=== PATIENT | female | born 1985 | race Two or more races ===

== ENCOUNTER 2020-03-07 13:55 | Outpatient (REF) | payer MEDICAID, SELFPAY | END 2020-03-07 13:56 | disposition home or self-care (01) | LOC: HO.LAB 13:55 | PROVIDERS: PCP Nurse Practitioner Family; Referring Provider Nurse Practitioner Family; Visit Provider Advanced Practice Midwife | DX: Z01.419 Encounter for gynecological examination (general) (routine) without abnormal findings (principal); N63.0 Unspecified lump in unspecified breast; N92.6 Irregular menstruation, unspecified | CPT/HCPCS: 87624; 87625; 88142 ==

== ENCOUNTER 2020-03-15 13:13 | Outpatient (REF) | payer MEDICAID, SELFPAY ==
--- NOTE | 2020-03-15 13:19 | MM_ITS ---
EXAMINATION: MM DIAGNOSTIC DIGITAL BREAST TOMOSYNTHESIS, BILATERAL US DIAGNOSTIC ULTRASOUND BREAST, LEFT CLINICAL INFORMATION: 34-year-old with 3 cm palpable mass 7:30 o'clock position left breast 8 cm from nipple noted at routine clinical exam. No prior breast imaging. No family history breast cancer. Prior history bilateral reduction mammoplasty 2008. COMPARISON: None (current study represents initial baseline exam). TECHNIQUE: Digital breast tomosynthesis is performed in both the craniocaudal and mediolateral oblique views along with computer-aided detection (CAD). Synthesized 2D images are generated from the tomosynthesis. Ultrasound left breast is targeted to the area of clinical concern lower quadrant. Grayscale imaging and color Doppler are performed without and with harmonics. FINDINGS: The breasts are almost entirely fatty (ACR BI-RADS breast composition Category a). Background stromal markings are unremarkable. There is no mass or architectural abnormality. No abnormal calcifications. There are some punctate fine benign round calcifications in the anterior breasts consistent with the history of prior reduction mammoplasty. The axilla and skin contours are unremarkable. Ultrasound demonstrates no cystic or solid mass, architectural abnormality, or focal duct ectasia. There is no skin thickening or edema tracking in the soft tissue planes. Results are discussed with the patient at time of visit.Patient should be managed based on the clinical impression. If clinically indicated, further evaluation may be considered with surgical consult. Decision to proceed with biopsy should be based on clinical grounds and degree of clinical concern. MM/MM diagnostic mammo BI IMPRESSION: No mammographic evidence of malignancy. Unremarkable targeted left breast ultrasound. ASSESSMENT: BI-RADS 2: Benign RECOMMENDATION: 1. Patient should be managed based on the clinical impression. If clinically indicated, further evaluation may be considered with surgical consult. Decision to proceed with biopsy should be based on clinical grounds and degree of clinical concern. 2. Otherwise, routine annual screening mammography, beginning age 40, or earlier as clinical risk factors warrant. This patient's information was entered into a reminder system with a target due date for their next mammogram.
== END 2020-03-15 13:14 | disposition home or self-care (01) ==
LOC: HO.MAMMO 13:13
PROVIDERS: Visit Provider Advanced Practice Midwife
DX: N63.24 Unspecified lump in the left breast, lower inner quadrant (principal)
CPT/HCPCS: 76642; 77066

== ENCOUNTER → 2020-03-28 11:47 | Outpatient (BNVA) | payer MEDICAID, SELFPAY | PROVIDERS: Visit Provider Advanced Practice Midwife | DX: Z76.89 Persons encountering health services in other specified circumstances (principal) ==

== ENCOUNTER 2020-10-05 14:54 | Emergency (ER) | payer MEDICAID, SELFPAY ==
[2020-10-05 16:45] VITALS: BP 115/79; PULSE 101; RESP 18; TEMP 37.8; O2SAT 99; BMI 42.5
--- NOTE | 2020-10-05 17:10 | ED_ITS ---
HPI - General Adult General Chief complaint: General Medical Stated complaint: COUGH CHEST DISCOMPFORT Time Seen by Provider: 10/05/20 16:43 Source: patient and family Limitations: language barrier History of Present Illness HPI narrative: Patient complaining of sore throat congestion over the past 24-36 hours. Positive sick contacts the family. No known COVID-19 exposure or past history of COVID-19 and patient has not been vaccinated patient denies smoking history. Patient denies taking medications at this time no trauma history. Patient denies nausea vomiting or diarrhea at this time. Patient has had a slight fever at home. No other complaints at this time Related Data Home Medications Medication Instructions Recorded Confirmed No Known Home Meds 03/07/20 03/07/20 Allergies Allergy/AdvReac Type Severity Reaction Status Date / Time No Known Allergies Allergy Unknown Verified 10/05/20 16:45 Review of Systems Constitutional: Constitutional: Denies chills, Reports fever(s) and Denies headache(s) ENT: Denies headache(s), Reports nasal congestion, Denies sinus pain and Reports sore throat Cardiovascular: Cardiovascular: Denies chest pain and Denies dyspnea Respiratory: Respiratory: Reports cough and Denies dyspnea Gastrointestinal: Gastrointestinal: Denies diarrhea, Denies nausea and Denies vomiting Genitourinary: Genitourinary: Reports no additional female genitourinary complaints Musculoskeletal: Musculoskeletal: Reports no additional musculoskeletal complaints Neurologic: Denies headache(s) Endocrine: Endocrine: Reports no additional endocrine complaints Allergic/Immunologic: Allergic/Immunologic: Denies urticaria PMFSH Past Medical History Attestation statement: The following information was validated with the patient. Medical History Unsatisfactory cervical Papanicolaou smear Surgical History Hx of bilateral breast reduction surgery Family History Family History Father Stroke Diabetes mellitus Prostate cancer Paternal Grandfather Diabetes mellitus Maternal Grandfather Prostate cancer Mother HTN (hypertension) Social History Social History Alcohol intake: never Advance Directives: No Advance Directives Information Provided: No Patient : No Gender identity: female Physical Exam Vital Signs: Vital Signs: Last Vital Signs Temp 100.0 F 10/05/20 16:45 Pulse 101 H 10/05/20 16:45 Resp 18 10/05/20 16:45 BP 115/79 10/05/20 16:45 Pulse Ox 99 10/05/20 16:45 Body Mass Index 42.5 vital signs have been reviewed as normal and appeared to be correct. Blood pressure normal. Heart rate normal. Respiration rate normal. Temperature normal. Oxygen saturation normal. Appearance: Alert. Oriented X3. No acute distress. Head: Normal external exam. Normocephalic. Atraumatic. Eyes: PERRLA. EOMI. Conjunctiva and sclera normal. Eyelids normal. ENT: Pharynx normal. Uvula midline. Moist mucous membranes. No evidence of peritonsillar abscess Neck: Soft full range of motion, no JVD CVS: Heart regular rate and rhythm no murmurs and rubs Respiratory: Breath sounds are clear to auscultation bilaterally. No accessory muscle use noted. Abdomen: Soft nontender no rebound or guarding positive bowel sounds Skin: Skin warm and dry. Normal skin color. Normal skin turgor. No rashes/lesions/lacerations noted. Extremities: No lower extremity edema. Patient ambulatory without ataxia Neuro: Oriented X 3. No motor deficit. No sensory deficit. Reflexes normal. Course Course Course Narrative: Differential diagnosis: COVID-19 COVID-19 screening Fever Acute pharyngitis Peritonsillar abscess Patient is febrile at a temp a 101? given 975 mg Tylenol p.o. at this time CO VID-19 swab sent patient has no obvious source of infection the oropharynx. O2 sat is 99% on room air 5:48 p.m. patient signed out to Corina Ventura PA-C
[2020-10-05] MEDS: Acetaminophen 325 MG TABLET 975 MG PO (17:31)
--- NOTE | 2020-10-05 18:04 | PC.NURSE ---
PT ALERT, RESP UNLABORED. MED WITH TYLENOL OREDERD FOR FEVER. WAITING RESULTS.
[2020-10-05 18:20] LABS: IDNOW Serial# 9DD0AD1C
[2020-10-05 18:42] VITALS: BP 128/79; PULSE 101; RESP 17; TEMP 37.7; O2SAT 99
[2020-10-05] MEDS: Ibuprofen 400 MG TABLET PO (19:18)
[2020-10-05 20:03] VITALS: TEMP 37.7
[2020-10-05 20:40] LABS: COVID-19 Test Positive (Negative)
== END 2020-10-05 21:53 | disposition home or self-care (01) ==
PROVIDERS: Physician Assistant; Emergency Provider Internal Medicine
DX: U07.1 COVID-19 (principal); J02.9 Acute pharyngitis, unspecified; R50.9 Fever, unspecified
CPT/HCPCS: 36415; 87635; 99284

== ENCOUNTER 2021-10-08 18:15 | Emergency (ER) | payer MEDICAID, SELFPAY ==
--- NOTE | ~2021-10-08 | XR_ITS ---
EXAMINATION: XR KNEE, LEFT CLINICAL INFORMATION: Injury COMPARISON: None TECHNIQUE: Two views of the left knee. FINDINGS: Small joint effusion. Bones are normal anatomic alignment with no acute fracture or dislocation seen. Mild degenerative changes are noted with small osteophyte formation along the superior aspect of the patella. No bony destructive lesions or periosteal reaction. Surrounding soft tissues unremarkable. XR/XR knee LT 2V IMPRESSION: Small joint effusion. No acute bony abnormality.
[2021-10-08 18:26] VITALS: BP 133/79; PULSE 75; RESP 18; TEMP 36.2; O2SAT 100; BMI 38.9
[2021-10-08 19:52] VITALS: BP 131/70; PULSE 75; TEMP 36.9; O2SAT 100
--- NOTE | 2021-10-08 20:34 | ED.LOWEXIN ---
HPI - Extremity Injury (Lower) General Chief Complaint: Extremity Injury, Lower Stated Complaint: L Knee Pain S/P Injury 10/07/21 Time Seen by Provider: 10/08/21 20:01 Source: patient Mode of arrival: ambulatory Limitations: no limitations History of Present Illness HPI Narrative: Patient presents emergency department for evaluation of left knee pain. She reports yesterday while stepping down from a step stool she missed the last step, and landed poorly on the left leg. She felt sudden onset of left knee pain. Pain has been worse as of today. Pain is worse with weight-bearing. Denies any prior injury to the knee. Denies any fevers, chills, redness, swelling, numbness or tingling of the extremity. Denies any hip or ankle pain. MD complaint: knee injury Onset (ago): day(s) Place: home Severity: moderate Severity scale (1-10): 6 Relieving factors: nothing Exacerbating factors: weight bearing Associated symptoms: ambulatory Other symptoms: none Treatments prior to arrival: cold therapy Related Data Previous Rx's Medication Instructions Recorded naproxen 500 mg tablet 500 mg PO BID PRN #14 tab 10/08/21 Allergies Allergy/AdvReac Type Severity Reaction Status Date / Time No Known Allergies Allergy Unknown Verified 10/05/20 16:45 Review of Systems Review of Systems: Musculoskeletal: Positive knee pain Yes all other systems are reviewed and are negative PMFSH Past Medical History Attestation statement: The following information was validated with the patient. Source: old records reviewed Medical History Unsatisfactory cervical Papanicolaou smear Surgical History Hx of bilateral breast reduction surgery Family History Family History Father Stroke Diabetes mellitus Prostate cancer Paternal Grandfather Diabetes mellitus Maternal Grandfather Prostate cancer Mother HTN (hypertension) Social History Social History Alcohol intake: never Advance Directives: No Advance Directives Information Provided: No Gender identity: Female Physical Exam Vital Signs: Vital Signs: Last Vital Signs Temp 98.4 F 06/06/22 19:52 Pulse 75 10/08/21 19:52 Resp 18 10/08/21 18:26 BP 131/70 10/08/21 19:52 Pulse Ox 100 10/08/21 19:52 BMI result Body Mass Index 38.9 Vital signs have been reviewed as normal and appeared to be correct. Blood pressure normal.? Heart rate normal.? Respiration rate normal. Temperature normal.? Oxygen saturation normal. Appearance: Alert.?Oriented to person, place and time. No acute distress.?Normal affect. Eyes: Pupils equal, round and reactive to light.? ENT: Pharynx normal.?? Neck: Normal inspection.? Neck supple.?? CVS: Heart sounds normal. Normal heart rate and rhythm.? Pulses normal.?? Respiratory: No respiratory distress.? Lung sounds clear to auscultation bilaterally?? Abdomen: Soft and non-tender. Skin: Skin warm and dry.? Normal skin color.? Normal skin turgor.?? Extremities: No lower extremity edema.? No calf ttp. Left knee anterior drawer test negative, posterior drawer test negative, valgus and varus stress tests are negative. No obvious effusion on exam, no deformity, no erythema, no rash. Palpable DP/PT pulse 2+ Neuro: Moves all extremities spontaneously. Sensation intact bilaterally. No motor deficits Ambulates with antalgic gait. Course Course Course Narrative: Patient is a 36-year-old female with no significant past medical history presenting to emergency department for traumatic left knee pain. Patient is hemodynamically stable, well appearing. No erythema or obvious swelling/deformity. Not consistent with fracture, dislocation, or septic arthritis. XR reveals no acute fracture dislocation, presence of small joint effusion. Neurovascularly intact distally. Advised patient cannot completely exclude ligamentous injury, advised the x-ray is not the preferred imaging modality for this, should her symptoms persist or worsen she would need to follow-up with her primary care provider for further evaluation. Discussed plan of care for treatment with rest, ice, compression with use of Sumit bandage, elevation, use of NSAIDs, given a prescription for naproxen. Discussed reasons that she should return back to the emergency department. Advised outpatient follow-up with her primary care provider as needed for pain. All questions were answered, she was discharged home in stable condition. Discharge Plan Discharge Clinical Impression: Effusion of knee Patient Disposition: Home, Self-Care Instructions: Knee Sprain (ED), FazalI.C.E. Treatment (ED) Additional Instructions: Be sure to rest, apply ice, compression with Sumit bandage, elevation when possible. Naproxen twice daily as needed for pain, do not take additional [id number] NSAID such as ibuprofen/Motrin, Aleve, aspirin. Please follow-up with your primary care provider as needed. Return to the emergency department any new or worsening symptoms or concerns. Prescriptions: New naproxen 500 mg tablet 500 mg PO BID PRN (Reason: pain) Qty: 14 0RF
== END 2021-10-08 21:00 | disposition home or self-care (01) ==
LOC: HO.ED 20:37
PROVIDERS: Emergency Provider Emergency Medicine
DX: M25.462 Effusion, left knee (principal); M25.562 Pain in left knee
CPT/HCPCS: 73560; 99283

== ENCOUNTER 2022-10-16 10:32 | Outpatient (REF) | payer MEDICAID, SELFPAY ==
--- NOTE | 2022-10-16 | EMG_ITS ---
Please see scanned EMG / Nerve Conduction Report. MTDD
== END 2022-10-16 10:33 | disposition home or self-care (01) ==
LOC: HO.NEURO 10:32
PROVIDERS: PCP Registered Nurse; Visit Provider Registered Nurse
DX: R20.0 Anesthesia of skin (principal); R20.2 Paresthesia of skin
CPT/HCPCS: 95885; 95913

== ENCOUNTER 2022-11-21 17:40 | Outpatient (REF) | payer MEDICAID, SELFPAY ==
[2022-11-22 13:27] LABS: BV Int Neg Control Negative (Negative); BV Int Pos Control Positive (Positive)
== END 2022-11-21 17:41 | disposition home or self-care (01) ==
LOC: HO.HHCLNP 17:40
PROVIDERS: Visit Provider Internal Medicine
DX: N89.8 Other specified noninflammatory disorders of vagina (principal)
CPT/HCPCS: 87086; 87147; 87480; 87510; 87660

== ENCOUNTER 2023-06-11 12:22 | Emergency (ER) | payer MEDICAID, SELFPAY ==
[2023-06-11 12:57] VITALS: BP 134/89; PULSE 83; RESP 18; TEMP 36.2; O2SAT 99; BMI 42.9
--- NOTE | 2023-06-11 12:58 | ED_ITS ---
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 Mode of arrival: ambulatory Limitations: no limitations History of Present Illness HPI narrative: 38 yo female with mild cold symptoms no chest pain, trouble breathing exposed to COVID on friday wants covid test complaint: cold symptoms Onset (ago): day(s) (Friday) Radiation: non-radiation Severity: mild Relieving factors: none Exacerbating factors: none Associated symptoms: other (runny nose) Treatments prior to arrival: none Related Data Previous Rx's Medication Instructions Recorded naproxen 500 mg tablet 500 mg PO BID PRN pain #14 tabs 10/08/21 Allergies Allergy/AdvReac Type Severity Reaction Status Date / Time No Known Allergies Allergy Unknown Verified 06/11/23 12:56 Review of Systems Review of Systems: Constitutional : No Fever, No Chills, No Fatigue ENT/Mouth : No sore throat, pos Rhinorrhea Eyes: No Eye Pain, No Swelling, No Redness Cardiovascular : No Chest Pain, No SOB, No Dyspnea on Exertion Respiratory : No Cough, No Sputum Gastrointestinal : No Nausea, No Vomiting, No Diarrhea, No abdominal Pain Genitourinary : No Dysuria, No Urinary Frequency, No Hematuria, Musculoskeletal : No joint pain, No Myalgias, No Joint Swelling Skin : No Skin Lesions, No rash Neuro : No Weakness, No Numbness, No Dizziness, positive Headache Psych : No Anxiety/Panic, No Depression All other systems reviewed and are negative PMFSH Past Medical History Attestation statement: The following information was validated with the patient. Source: old records reviewed Medical History Unsatisfactory cervical Papanicolaou smear Surgical History Hx of bilateral breast reduction surgery Family History Family History Father Stroke Diabetes mellitus Prostate cancer Paternal Grandfather Diabetes mellitus Maternal Grandfather Prostate cancer Mother HTN (hypertension) Social History Social History Alcohol intake: never Gender identity: Female Physical Exam ED Vital Signs: Vital Signs - 24 hr 06/11/23 12:57 Temperature 97.1 F Pulse Rate 83 Respiratory Rate 18 Blood Pressure 134/89 Pulse Oximetry 99 Oxygen Delivery Method Room Air BMI result Body Mass Index 42.9 Appearance: Alert. Oriented X3. No acute distress. Eyes: Pupils equal, round and reactive to light. ENT: Pharynx normal. Neck: Normal inspection. Neck supple. CVS: Normal heart rate and rhythm. Pulses normal. Respiratory: No respiratory distress. Breath sounds normal. Abdomen: Soft and nontender. Skin: Skin warm and dry. Normal skin color. Normal skin turgor. Extremities: No lower extremity edema. No calf ttp Neuro: Oriented X 3. No motor deficit. No sensory deficit. Course Course Course Narrative: RME:? 38 year old turkish speaking female with no significant pmhx presenting to ED with daughter and requesting COVID test after being exposed to her COVID positive son at home. Her son tested positive yesterday. She denies any symptoms. No concerns at this time. Denies fevers, chills, sore throat, cough, chest pain, sob or dyspnea, N/V/D. Full HPI, ROS and PE to be performed by the primary ED provider. Medical Decision Making Medical Decision Making MDM Narrative: healthy 38 yo female with no sig PMH here with c/o covid exposure on Friday mild cold sypmtoms no CP/SOB no hypoxia wants covid test, declines paxlovid Differential Diagnosis Differential Diagnoses: The differential diagnosis associated with the presentation includes viral syndrome Lab Data [facility] Lab Attestation statement: I reviewed the patient's lab results. Labs: Lab Results 06/11/23 Range/Units 14:34 COVID-19 (TREV) Positive A (Negative) COVID-19 Clin Com See Note Prescription Management I considered prescription management with: Antiviral Discharge Plan Discharge Clinical Impression: COVID-19 Patient Disposition: Home, Self-Care Instructions: COVID-19 (Coronavirus Disease 2019) (ED) Additional Instructions: return for shortness of breath, chest pain, inability to eat or drink. wear a mask and protect others. Regrese por dificultad para respirar, dolor en el pecho, incapacidad para comer o beber. use cindi m?scara y proteja a los dem?s. Prescriptions: No Action naproxen 500 mg tablet 500 mg PO BID PRN (Reason: pain) Qty: 14 0RF Stand Alone Forms: Work/School Release Print Language: English
[2023-06-11 15:00] LABS: COVID-19 Test Positive (Negative); IDNOW Serial# 08D9AD1C
== END 2023-06-11 15:20 | disposition home or self-care (01) ==
PROVIDERS: Physician Assistant Medical; Emergency Provider Emergency Medicine
DX: U07.1 COVID-19 (principal)
CPT/HCPCS: 87635; 99282; 99283

== ENCOUNTER 2023-07-08 14:18 | Outpatient (AMB) | payer MEDICAID, SELFPAY ==
--- NOTE | 2023-07-08 15:02 | MHC.OFFVIS ---
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 States her right is worse and has had symptoms for the last 10 years. States as of a few months ago her CTS has worsen. Reports this wakes her up at night. She uses a brace to sleep with little help. EMG done. States she is not interested in surgery at the moment. 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 She complains of numbness in the thumb, index, and middle fingers bilaterally, R>L. She says this has been present for a long time. She feels numbness in her wrist and like her fingers are swollen . She says her symptoms wake her up at night and she finds little relief from wearing a brace at night. She is unsure if she wants to have surgery vs an injection as she has heard bad things from people who have not done well following surgery. 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 Gender identity: Female Review of Systems Const All systems reviewed & are unremarkable except as noted in HPI and below Physical Exam Vital Signs: BMI result Body Mass Index 44.8 Const General: cooperative, healthy appearing and no acute distress Orientation/consciousness: patient oriented x3 HEENT Head: Yes normocephalic and Yes atraumatic Eyes EOM: EOMs intact bilaterally Resp Effort & Inspection: normal respiratory effort and able to speak in complete sentences Cardio Jugular venous distension: no JVD Skin General skin exam: turgor normal Rashes: no rashes Neuro General: patient oriented x3 Extrem Other: Evaluation of Bilateral Upper Extremity: The patient is alert, oriented, and in no acute distress Neuro: Median, Ulnar, Radial nerves motor and sensory intact and sensation is normal to the tips of all digits No thenar or intrinsic wasting Good APB muscle belly firing and good finger cross Vascular: Cap refill brisk ROM: She can make a fist and extend all her digits No locking or catching Skin: No lacerations or abrasions. General: No Ecchymosis. No Erythema or evidence of infection. Nerve Conduction Study: Moderate right carpal tunnel syndrome. Early left carpal tunnel syndrome. Dr. Triplett 10/16/22 Psych Appearance: grossly normal Affect: normal affect Attitude: cooperative Assessment & Plan Assessment & Plan (1) Carpal tunnel syndrome of right wrist: Code(s): G56.01 - Carpal tunnel syndrome, right upper limb (2) Carpal tunnel syndrome of left wrist: Code(s): G56.02 - Carpal tunnel syndrome, left upper limb Plan Assessment & Plan: 1. Right carpal tunnel syndrome, moderate Symptoms intermittent, but daily, worse at night This is her primary complaint today I educated her about this condition I discussed operative and non-operative treatment options The patient would like to proceed with surgery, beginning with the right hand The risks and benefits of operative treatment were discussed with the patient and the patient wishes to proceed with surgery. These risks include, but are not limited to risk of damage to blood vessels, nerves, tendons, infection, recurrence, incomplete relief of preoperative symptoms, persistent pain, possible need for further surgery and the risks associated with regional blocks and anesthesia. The plan is to take the patient to the operating room sometime in the next few weeks for the following procedures: 1. Right carpal tunnel release, under local All of the preoperative paperwork including the consent was reviewed today. All the patient's questions were answered. The patient understands that they will be contacted by our cement sprayer helper soon to schedule this procedure She denies Diabetes, blood thinners, asthma, heart, lung, kidney issues 2. Left carpal tunnel syndrome, early Symptoms intermittent, but daily, worse at night Scribed for Annie Yanez MD by Cheng Gay, center medical specialist, on 07/08/23 at 3:20 PM, EST. Coding Level of Care Code New Pt Level 4 (58412) Diagnoses Carpal tunnel syndrome of right wrist G56.01 Carpal tunnel syndrome of left wrist G56.02
[2023-07-08 15:03] VITALS: BMI 44.8
== END 2023-07-08 15:31 | disposition home or self-care (01) ==
PROVIDERS: PCP Registered Nurse; Visit Provider Orthopaedic Surgery
DX: G56.03 Carpal tunnel syndrome, bilateral upper limbs (principal)
CPT/HCPCS: 99204

== ENCOUNTER → 2023-07-08 14:18 | Outpatient (BNVA) | payer MEDICAID, SELFPAY | PROVIDERS: PCP Registered Nurse; Visit Provider Orthopaedic Surgery | DX: G56.03 Carpal tunnel syndrome, bilateral upper limbs (principal) | CPT/HCPCS: 99202 ==

== ENCOUNTER 2023-09-30 09:40 | Outpatient (REF) | payer MEDICAID, SELFPAY ==
[2023-09-30 11:39] LABS: MANUAL DIFF FLAG NO
[2023-09-30 11:54] LABS: Basophils Percent Auto 0.3 % (0-2); Eosinophils Absolute Auto 0.1 X10*3/uL (0.0-0.4); Eosinophils Percent Auto 1.3 % (0-4); Hematocrit 38.6 % (37.0-47.0); Hemoglobin 12.6 g/dl (12.0-16.0); Imm Gran Abs Auto 0.01 X10*3/uL (0.00-0.03); Imm Gran Pct Auto 0.2 % (0.0-0.4); Lymphocytes Percent Auto 33.6 % (20-40); Mean Corpuscular HGB Conc 32.6 g/dl (31.0-35.0); Mean Corpuscular Hemoglobin 27.7 pg (27.0-33.0); Mean Corpuscular Volume 84.8 fL (80.0-98.0); Mean Platelet Volume 10.9 fL (9.4-12.3); Monocytes Absolute Auto 0.5 X10*3/uL (0.1-1.2); Monocytes Percent Auto 8.6 % (2-11); Neutrophils Absolute Auto 3.4 x10*3/uL (2.0-8.3); Platelet Count 341 X10*3/uL (160-400); Red Blood Count 4.55 X10*6/uL (4.20-5.50); Red Cell Distribution Width 13.1 % (11.0-16.0)
[2023-09-30 12:05] LABS: Estimated Average Glucose 111 mg/dL; Hemoglobin A1c % 5.5 % (<6.0)
[2023-09-30 12:24] LABS: Alanine Aminotransferase 11 U/L (0-31); Albumin Level 3.8 g/dL (3.5-5.0); Alkaline Phosphatase 59 U/L (39-117); Anion Gap 10 (12-20); Aspartate Amino Transferase 12 U/L (5-31); Bilirubin Total 0.4 mg/dL (0.0-1.0); Blood Urea Nitrogen 10 mg/dL (9-16); Calcium 9.1 mg/dL (8.4-10.2); Carbon Dioxide 28 mmol/L (22-29); Chloride 106 mmol/L (96-108); Cholesterol 179 mg/dL (<200); Estimated Glomerular Filt Rate > 60; Glucose Random 108 mg/dL (60-115); HDL Cholesterol 57 mg/dL (>40); LDL Cholesterol Calculated 113 mg/dL (<100); Potassium 3.9 mmol/L (3.3-5.1); Sodium 140 mmol/L (135-145); TSH reflex Free T4 1.49 uIU/mL (0.32-4.0); Total Protein 6.7 g/dL (6.5-8.0); Triglycerides 49 mg/dL (<150); Vitamin D 25-OH Total 31.7 ng/mL (>30)
[2023-10-03 08:58] LABS: TS Negative Control Passed; TS Panel A 1; TS Panel B 0; TS Positive Control Passed; TSpotTB Negative (Negative)
== END 2023-09-30 09:41 | disposition home or self-care (01) ==
LOC: HO.HHCL 09:40
PROVIDERS: Visit Provider Registered Nurse
DX: Z00.00 Encounter for general adult medical examination without abnormal findings (principal); Z11.1 Encounter for screening for respiratory tuberculosis
CPT/HCPCS: 36415; 80053; 80061; 82306; 83036; 84443; 85025; 86481

== ENCOUNTER 2023-11-13 12:23 | Day surgery (SDC) | payer MEDICAID, SELFPAY ==
[2023-11-13 12:59] VITALS: BMI 42.4
--- NOTE | 2023-11-13 16:32 | P.OP_ITS ---
Operative Note Operative Note Date of Service: 11/13/23 Narrative: Preop diagnosis: 1. Right Carpal tunnel syndrome Postop diagnosis: same Procedure: 1. Right Carpal tunnel release Surgeon: Annie Yanez MD Senior Net C Developer: VARGAS Gomes Anesthesia: local block using 1% lidocaine with epinephrine Findings: Thickened transverse carpal ligament. EBL: Less than 5 mL Specimens: None Complications: None Disposition: Brought to recovery room in stable condition Plan: Follow-up for 10-14 days for wound check and suture removal Indications: The patient is 38 years old, with right carpal tunnel syndrome that has been unresponsive to nonoperative management. The risks and benefits of operative treatment including but not limited to risk of damage to blood vessels, nerves, tendons, infection, persistent pain, persistent symptoms, or possible need for additional surgery were discussed with the patient and the patient wishes to proceed with surgery. Procedure: Once consent was obtained a local block was performed using a combination of 1% lidocaine with epinephrine. The patient was then brought back to the operating suite and placed on the operative table in supine position. The right upper extremity was prepped and draped in a standard surgical fashion. Once assured that we had a good block, a 2.0 cm longitudinal incision was made centered over the carpal tunnel. The incision was made through the skin to the subcutaneous tissues using a #15 blade. Dissection was made down to the level of the transverse carpal ligament with care being taken to protect the palmar cutaneous nerve. Once the transverse carpal ligament was clearly visualized, a longitudinal incision was made in the transverse carpal ligament 1st using a #15 blade, then using tenotomy scissors under direct visualization. Care was taken to look for and protect the motor branch of the median nerve when seen in this area. Once satisfied with our carpal tunnel release the wound was copiously irrigated with normal saline and hemostasis was obtained with a brief period of local pressure. The skin edges were reapproximated with some 5.0 nylon suture material and a sterile dressing was applied. The patient appears to have tolerated the procedure well and with no complications. All digits were well vascularized at the conclusion of the case.
--- NOTE | 2023-11-13 16:32 | MHC.SHP ---
Pre-Procedural Eval Section A - 24 Hr Update-Section A only Date of Service: 11/13/23 The patient is an INPATIENT: No Changes since office visit: No Cold of Flu in the past 2 weeks, No New Medical Problems, No Changes in Medication and No Patient answered all questions The patient has been examined within 24 hours of the surgical procedure. The History & Physical has been completed within 30 days and I have reviewed it.: Yes Section B - Complete if H&P > 30 days Chief Complaint: Carpal tunnel syndrome, right upper limb Allergies: Allergies Allergy/AdvReac Type Severity Reaction Status Date / Time No Known Allergies Allergy Unknown Verified 07/08/23 15:03 Plan Diagnosis/Plan: Unchanged I have reviewed the history and physical and performed a pertinent physical examination on my patient. No changes have occurred unless specified. Time Spent With Patient Time: Total time managing care of this patient today ____ minutes.
[2023-11-13 17:04] VITALS: BP 139/73; PULSE 66; RESP 17; TEMP 37.7; O2SAT 100
== END 2023-11-13 17:17 | disposition home or self-care (01) ==
PROVIDERS: PCP Registered Nurse; Visit Provider Orthopaedic Surgery
PROC: (CPT 64721; principal; 2023-11-13 15:40)
DX: G56.01 Carpal tunnel syndrome, right upper limb (principal); R20.0 Anesthesia of skin; Z98.890 Other specified postprocedural states
CPT/HCPCS: 64721; J0171

== ENCOUNTER → 2023-11-13 12:23 | Outpatient (BNV) | payer MEDICAID, SELFPAY | PROVIDERS: PCP Registered Nurse; Visit Provider Orthopaedic Surgery | DX: G56.01 Carpal tunnel syndrome, right upper limb (principal) | CPT/HCPCS: 64721 ==

== ENCOUNTER 2023-11-27 11:59 | Outpatient (AMB) | payer MEDICAID, SELFPAY ==
--- NOTE | 2023-11-27 12:39 | MHC.OFFVIS ---
Vital Signs 11/27/23 12:40 Height 5 ft 1 in Weight 224 lb BMI 42.3 Intake Visit Reasons: PO RT CTR 11/13/23 AR Intake Note: Yocasta is a 38 yo right hand dominant female who presents today postoperatively s/p right CTR 11/13/[address] Yanez. Reports numbness, tingling when she wakes up in the morning. Has had on and off episodes of pain. She has been taking Ibuprofen for pain with some relief. She still experiences a pulse sensation at the incision site and 2nd to 5th finger despite of taking Ibuprofen. Stitches removed and steri strips applied. Rail Maintenance Worker Required: Yes Rail Maintenance Worker Language: For[employer] Services: Rail Maintenance Worker Present Rail Maintenance Worker Name: DennyJO/ALLYSON Allergies No Known Allergies Allergy (Unknown, Verified 11/27/23 12:44) HPI HPI PO RT CTR 11/13/23 AR: Details: Yocasta is a 38 presents for postop evaluation after right carpal tunnel release, DOS 11/13/2023. Patient reports that she is doing well, but reports that she is still experiencing intermittent numbness and tingling in the median nerve distribution of her right hand, but reports that her symptoms were constant prior to surgery. Patient reports mild discomfort about the incision site, but no severe pain, erythema, or discharge. Patient also reports slightly limited range of motion, with soreness in the MCP joints when making a closed fist with the right hand. No other acute concerns or complaints at this time. 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 Normal sensation in the tips of all digits of the left hand today. No thenar or intrinsic wasting. Good APB muscle firing and good finger cross. Vascular: Capillary refill brisk. ROM: Patient can make a fist and extend all their digits with encouragement Skin: Well-healing incision site on the volar aspect of the right wrist noted. No erythema, discharge, or other evidence of infection General: No ecchymosis. No erythema or evidence of infection. Assessment & Plan Assessment & Plan (1) Carpal tunnel syndrome of left wrist: Code(s): G56.02 - Carpal tunnel syndrome, left upper limb Category: Medical (2) Carpal tunnel syndrome of right wrist: Code(s): G56.01 - Carpal tunnel syndrome, right upper limb Category: Medical Plan 1. Carpal tunnel syndrome, left, status post carpal tunnel release DOS 11/13/[address] Yanez Patient is recovering well postoperatively Patient is educated about the typical recovery course Sutures removed, Steri-Strips applied Patient is educated that, due to the dense nature of her symptoms preoperatively, there is an increased chance that she will not get normal sensation back in the median nerve distribution of the right hand, and that if she does it can take weeks or possibly months Patient educated that surgery was also performed in order to alleviate her pain and preserve her APB muscle belly function Patient is amenable to this. Patient is advised to do home range of motion exercises in her right hand as demonstrated in the office, and to call for referral to occupational hand therapy if she continues to experience stiffness after a week or two. Patient will follow-up p.r.n. with any acute concerns 2. Carpal tunnel syndrome, left Symptoms intermittent, not daily Patient does not feel that this condition warrants intervention at this time Patient will follow-up in office when she feels symptoms have begun to occur almost every day Coding Level of Care Code Global (91516) Diagnoses Carpal tunnel syndrome of left wrist G56.02 Carpal tunnel syndrome of right wrist G56.01
[2023-11-27 12:40] VITALS: BMI 42.3
== END 2023-11-27 13:12 | disposition home or self-care (01) ==
PROVIDERS: PCP Registered Nurse
DX: G56.03 Carpal tunnel syndrome, bilateral upper limbs (principal)
CPT/HCPCS: 99024

== ENCOUNTER → 2023-11-27 11:59 | Outpatient (BNVA) | payer MEDICAID, SELFPAY | PROVIDERS: PCP Registered Nurse; Visit Provider Physician Assistant | DX: G56.03 Carpal tunnel syndrome, bilateral upper limbs (principal) | CPT/HCPCS: 99212 ==

== ENCOUNTER 2024-10-27 10:35 | Outpatient (REF) | payer MEDICAID, SELFPAY ==
--- OUTSIDE RECORDS SUMMARY | 2024-10-27 10:15 | XMS_ITS | Encounter Summary ---
Author Organization [employer] Address [address] [place] [address] [address] [place] [address] Care Team Providers Care Antiquer Name Role Phone Jacki Gregorio FARRAH Primary Care Provider [phone] Encounter Details Date Type Department Care Team ([facility] st Contact Info) Description 10/27/2024 10:15 AM EDT Office Visit [facility] [address], [place] [phone] Bob Shine CNP [address] [place], [place] [phone] Encounter for routine history and physical examination of adult (Primary Dx); Dietary counseling; Exercise counseling; Prediabetes; Class 3 severe obesity due to excess calories without serious comorbidity with body mass index (BMI) of 40.0 to 44.9 in adult Social History Tobacco Use Types Packs/Day Years Used Date Smoking Tobacco: Never Passive Smoke Exposure: Never Smokeless Tobacco: Never Alcohol Use Standard Drinks/Week Comments Not Currently 0 (1 standard drink = 0.6 oz pur e alcohol) socially Depression Answer Date Recorded Patient Health Questionnaire-9 Score 6 10/27/2024 Patient Health Questionnaire-9 Score 6 10/27/2024 Last PHQ-9: Questionnaire Data Not on file 0 10/27/2024 Housing Stability Answer Date Recorded What is your housing situation today? I have karyna escamilla 10/19/[address] you li ve. Do you have problems with any of the following? None of the above 10/19/2024 Food Insecurity Answer Date Recorded Within the past 12 months, y ou worried that your food would run out before you got money to buy more: Never True 10/19/2024 Within the past 12 months,th e food you bought just didn't last and you didn't have enough money to get more: Never True Transportation Answer Date Recorded In the past 12 months, has l ack of transportation kept you from medical appts, meetings, work or from getting things needed for daily living? No 10/19/2024 Utilities Answer Date Recorded In the past 12 months, has t he electric, gas, oil or water company threatened to shut off services in your home? No 10/19/2024 Depression Answer Date Recorded Patient Health Questionnaire-2 Score 1 10/27/2024 Internet Access Answer Date Recorded Internet Access Q1 Yes 10/19/2024 Internet Access Q2 Not on file 10/19/2024 Comments Unknown Intention Date Recorded No desire to become (finding) 0 10/27/2024 Sex and Gender Information Value Date Recorded Sex Assigned at Female 03/04/2022 10:18 AM EDT Legal Sex Female 10:18 AM EDT Gender Identity Female 03/04/2022 10:18 AM EDT Sexual Orientation Straight 03/04/2022 10 :18 AM EDT documented as of this encounter Last Filed Vital Signs Vital Sign Reading Time Taken Comments Blood Pressure 122/84 10/27/2024 10:04 AM EDT Pulse 63 10/27/2024 10:04 AM EDT Temperature 36.9 C (98.4 F) 10/27/2024 10:04 AM EDT Respiratory Rate 16 10/27/2024 10:04 AM EDT Oxygen Saturation 99% 10/27/2024 10:04 AM EDT Inhaled Oxygen Concentration - - Weight 102 kg (224 lb 4 oz) 10/27/2024 10:04 AM EDT Height 157 cm (5' 1.81 ) 10/27/2024 10:04 AM EDT Body Mass Index 41.27 10/27/2024 10:04 AM EDT documented in this encounter Functional Status * Over the past 2 weeks, how often have you been bothered by any of the following problems? Question Answer Date of Assessment Author Patient Health Questionnaire-2 Score 1 10/27/2024 10:33 AM EDT Kayla Garcia MA * Little interest or pleasure in doing things Answer Date of Assessment Author Several days 10/27/2024 10:33 AM EDT Kayla Almaguer Ma, [place] * Feeling down, depressed, or hopeless Answer Date of Assessment Author Not at all 10/27/2024 10:33 AM Kayla Albert Ma, [place] * Trouble falling or staying asleep, or sleeping too much Answer Date of Assessment Author Several days 10/27/2024 10:33 AM Kayla Albert Ma, [place] * Feeling tired or having little energy Answer Date of Assessment Author More than half the days 10/27/2024 10:33 AM EDKayla Piña MA * Poor appetite or overeating Answer Date of Assessment Author More than half the days 10/27/2024 10:33 AM Kayla Tena MA * Feeling bad about yourself - or that you are a failure or have let yourself or your family down Answer Date of Assessment Author Not at all 10/27/2024 10:33 AM Kayla Albert Ma, [place] * Trouble concentrating on things, such as reading the newspaper or watching television Answer Date of Assessment Author Not at all 10/27/2024 10:33 AM Kayla Albert Ma, [place] * Moving or speaking so slowly that other people could have noticed? Or the opposite - being so fidgety or restless that you have been moving around a lot more than usual. Answer Date of Assessment Author Not at all 10/27/2024 10:33 AM Kayla Albert Ma, [place] * Thoughts that you would be better off or hurting yourself in some way Answer Date of Assessment Author Not at all 10/27/2024 10:33 AM Kyala Albert Ma, [place] * Patient Health Questionnaire-9 Score Answer Date of Assessment Author 6 10/27/2024 10:33 AM Kayla Albert Ma, [place] * How difficult have these problems made it for you to do your work, take care of things at home, or get along with other people? Answer Date of Assessment Author Not difficult at all 10/27/2024 10:33 AM Kayla Holbrook MA * Over the last 2 weeks, how often have you been bothered by any of the following problems? Question Answer Date of Assessment Author Feeling nervous, anxious, or on edge 1 10/27/2024 10:33 AM EDT Kayla Vidal MA Not being able to stop or control worrying 0 10/27/2024 10:33 AM EDT Kayla Vidal MA Worrying too much about different things 1 10/27/2024 10:33 AM EDT Kayla Vidal MA Trouble relaxing 2 10/27/2024 10:33 AM EDT Kayla Vidal MA Being so restless that it is hard to sit still 2 10/27/2024 10:33 AM EDT Kayla Vidal MA Becoming easily annoyed or irritable 1 10/27/2024 10:33 AM EDT Kayla Vidal MA Feeling afraid as if something awful might happen 0 10/27/2024 10:33 AM EDT Kayla Deras MA BRIDGETTE-7 Total Score 7 10/27/2024 10:33 AM EDT Kayla Vidal MA documented as of this encounter Progress Notes * Bob Shine CNP - 10/27/2024 10:15 AM EDT Subjective: Yocasta Garcia is a 39 y.o. female with PMH of Vit D deficiency, obesity, carpal tunnel syndrome, and prediabetes who presents to the office for a physical exam. PCP Jacki YAN. 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 Periods are regular. Current Medications[4] Immunization History Administered Date(s) Administered DTaP 1986, 1986, 04/16/1987, 01/16/1989, 06/17/1990 Hep A, Adult 10/13/2012, 11/09/2018 Hep B, Adolescent or Pediatric 01/25/2000, 02/28/2000, 08/01/2000 Hib (HbOC) 07/27/1989 IPV 1986, 04/06/1987, 06/29/1987, 01/16/1989 Influenza, IIV3, injectable 02/26/2008, 03/17/2014 Influenza, Split (incl. purified surface antigen) 02/24/2012 MMR 01/16/1989, 06/17/1991 Pfizer Covid-19 Vaccine 12+ 06/18/2021 Pfizer Covid-19 Vaccine 12+ adithya-sucrose (Mcintosh Cap) 07/09/2021 TD (adult), 2 Lf tetanus toxoid, preservative free, adsorbed 08/24/2004 Tdap 06/15/2013, 09/26/2023 Varicella 08/25/2007 Allergies[5] Review of Systems Constitutional: Negative for appetite change, chills, diaphoresis, fatigue, fever and unexpected weight change. Respiratory: Negative for apnea, cough, chest tightness, shortness of breath and wheezing. Cardiovascular: Negative for chest pain and palpitations. Gastrointestinal: Negative for abdominal distention, abdominal pain, blood in stool, constipation, diarrhea, nausea and vomiting. Endocrine: Negative for polydipsia, polyphagia and polyuria. Genitourinary: Negative for menstrual problem and pelvic pain. Skin: Negative for pallor. Neurological: Negative for dizziness, syncope, speech difficulty, weakness, light-headedness, numbness and headaches. Vitals: 10/27/24 1004 BP: 122/84 BP Location: Left arm Patient Position: Sitting BP Cuff Size: Large adult Pulse: 63 Resp: 16 Temp: 98.4 ??F (36.9 ??C) TempSrc: Oral SpO2: 99% Weight: 224 lb 4 oz (102 kg) Height: 5' 1.81 (1.57 m) Physical Exam Constitutional: General: She is not in acute distress. Appearance: Normal appearance. She is not ill-appearing. HENT: Head: Normocephalic and atraumatic. Right Ear: Tympanic membrane, ear canal and external ear normal. There is no impacted cerumen. Left Ear: Tympanic membrane, ear canal and external ear normal. There is no impacted cerumen. Nose: No congestion or rhinorrhea. Mouth/Throat: Mouth: Mucous membranes are moist. Pharynx: No oropharyngeal exudate or posterior oropharyngeal erythema. Eyes: General: No scleral icterus. Right eye: No discharge. Left eye: No discharge. Extraocular Movements: Extraocular movements intact. Pupils: Pupils are equal, round, and reactive to light. Cardiovascular: Rate and Rhythm: Normal rate and regular rhythm. Pulses: Normal pulses. Heart sounds: Normal heart sounds. No murmur heard. No friction rub. No gallop. Pulmonary: Effort: Pulmonary effort is normal. No respiratory distress. Breath sounds: Normal breath sounds. No stridor. No wheezing, rhonchi or rales. Chest: Chest wall: No tenderness. Abdominal: General: Abdomen is flat. Bowel sounds are normal. There is no distension. Palpations: Abdomen is soft. There is no mass. Tenderness: There is no abdominal tenderness. There is no guarding. Musculoskeletal: General: Normal range of motion. Cervical back: Normal range of motion and neck supple. No tenderness. Right lower leg: No edema. Left lower leg: No edema. Lymphadenopathy: Cervical: No cervical adenopathy. Skin: General: Skin is warm and dry. Capillary Refill: Capillary refill takes less than 2 seconds. Neurological: General: No focal deficit present. Mental Status: She is alert and oriented to person, place, and time. Psychiatric: Mood and Affect: Mood normal. Behavior: Behavior normal. Thought Content: Thought content normal. Judgment: Judgment normal. Problem List Items Addressed This Visit Prediabetes Overview Lab Results Component Value Date HGBA1C 5.8 (H) 06/28/2022 HGBA1C 5.5 08/24/2020 HGBA1C 5.7 -Reviewed lifestyle interventions including goal daily physical activity and healthy dietary options Class 3 severe obesity due to excess calories without serious comorbidity with body mass index (BMI) of 40.0 to 44.9 in adult Other Visit Diagnoses Encounter for routine history and physical examination of adult - Primary Relevant Orders CBC auto differential Hemoglobin A1c Comprehensive Metabolic Panel TSH W/Reflex to FT4 Lipid Panel, Standard Vitamin D, 25-Hydroxy, Total, Immunoassay POCT Glucose (Completed) POCT HGB A1C (Completed) T-SPOT??.TB Vision: UTD Dental: UTD Breast CA: not due Cervical CA: 09/20/2020 NILM HPV neg, next due in 03/2025. Colon CA: not yet due Labs: new lab studies ordered today included Tb testing for work. See orders. IMMs: UTD Dietary counseling Exercise counseling Dietary Recommendations: Fruits, vegetables, whole grains, protein foods, and fat-free or low-fat dairy products are healthychoices. Eat different types of protein foods in your diet. This can include seafood, lean meats, poultry, beans, peas, lentils, nuts, seeds, soy products, and eggs. Limit foods and beverages higher in added sugars, saturated fat, and sodium. 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 I, Yancy Zayas MD, have reviewed the resident's note and agree with the assessment & plan of care as documented above. Visit Conducted in: Nepali Translation by: [employer] ID# [id number] [1] Patient Active Problem List Diagnosis Prediabetes Vitamin D deficiency Routine health maintenance Carpal tunnel syndrome, bilateral Class 3 severe obesity due to excess calories without serious comorbidity with body mass index (BMI) of 40.0 to 44.9 in adult Irregular menses Effusion of knee [2] Past Surgical History: Procedure Laterality Date BREAST SURGERY 2009 Reduction [3] Family History Problem Relation Name Age of Onset Hypertension Mother Heart disease Mother Cataracts Mother Stroke Father Prostate cancer Father Other (diabetes mellitus) Father Asthma Sister Prostate cancer Brother Other (cardiovascular disease) Maternal Grandmother Prostate cancer Maternal Grandfather Diabetes Paternal Grandfather [4] Current Outpatient Medications Medication Sig Dispense Refill cholecalciferol (Vitamin D-3) 25 MCG (1000 UT) tablet TAKE 1 TABLET BY MOUTH EVERY MORNING. 90 tablet 3 norgestimate-ethinyl estradiol ([place]-Linyah) 0.25-35 MG-MCG tablet TAKE 1 TABLET BY MOUTH EVERY MORNING 84 tablet 3 No current facility-administered medications for this visit. [5] No Known Allergies documented in this encounter Plan of Treatment Scheduled Orders Name Type Priority Associated Diagnoses Orde r Schedule CBC auto differential Lab Routine Encounter for routine history and physical examination of adult Ordered: 10/27/2024 Hemoglobin A1c Lab Routine Encounter for routine history and physical examination of adult Ordered: 10/27/2024 Comprehensive Metabolic Panel Lab Routine Encounter for routine history and physical examination of adult Ordered: 10/27/2024 TSH W/Reflex to FT4 Lab Routine Encounter for routine history and physical examination of adult Ordered: 10/27/2024 Lipid Panel, Standard Lab Routine Encounter for routine history and physical examination of adult Ordered: 10/27/2024 Vitamin D, 25-Hydroxy, Total, Immunoassay Lab Routine Encounter for routine history and physical examination of adult Ordered: 10/27/2024 T-SPOT .TB Lab Routine Encounter for routine history and physical examination of adult Ordered: 10/27/2024 documented as of this encounter Procedures Procedure Name Priority Date/Time Associated Diagnosis Comments POCT GLYCATED HEMOGLOBIN, TOTAL Routine 10/27/2024 10:07 AM EDT Encounter for routine history and physical examination of adult POCT GLUCOSE Routine 10/27/2024 10:05 AM EDT Encounter for routine history and physical examination of adult documented in this encounter Results * POCT HGB A1C (10/27/2024 10:07 AM EDT) Hemoglobin A1C 5.7 4.0 - 6.0 % QC Media Lot # [id number] Lot# Expiration Date [id number] Blood 10/27/2024 10:0 7 AM EDT [facility] POINT OF CARE TEST ENTER/ EDIT ORDERABLES Final Result * POCT Glucose (10/27/2024 10:05 AM EDT) Glucose Blood, POC 110 60 - 200 mg/dL QC Media Lot # [id number] Lot# Expiration Date Blood Capillary blood specimen / Unknown 10/27/2024 10:05 AM EDT [facility] POINT OF CARE TEST ENTER/ EDIT ORDERABLES Final Result documented in this encounter Visit Diagnoses Diagnosis Encounter for routine history and physical examination of adult- Primary Dietary counseling Dietary surveillance and counseling Exercise counseling Prediabetes Other abnormal glucose Class 3 severe obesity due to excess calories without serious comorbidity with body mass index (BMI) of 40.0 to 44.9 in adult documented in this encounter Additional Health Concerns Assessment Noted Time PHQ-9 Depression Total Score: 6 10/28/19 25 10:33 AM EDT documented as of this encounter Care Teams Antiquer Relationship Specialty Start Date End Date Jacki Gregorio FNP [address] [place] [id number] PCP - General Family Medicine 05/22/22 documented as of this encounter
[2024-10-27 13:21] LABS: MANUAL DIFF FLAG NO
[2024-10-27 13:26] LABS: Basophils Percent Auto 0.4 % (0-2); Eosinophils Percent Auto 0.6 % (0-4); Hematocrit 36.2 % (37.0-47.0); Hemoglobin 12.2 g/dl (12.0-16.0); Imm Gran Abs Auto 0.02 X10*3/uL (0.00-0.03); Imm Gran Pct Auto 0.4 % (0.0-0.4); Lymphocytes Absolute Auto 1.8 X10*3/uL (1.2-4.9); Lymphocytes Percent Auto 37.2 % (20-40); Mean Corpuscular HGB Conc 33.7 g/dl (31.0-35.0); Mean Corpuscular Volume 83.2 fL (80.0-98.0); Mean Platelet Volume 11.5 fL (9.4-12.3); Monocytes Absolute Auto 0.3 X10*3/uL (0.1-1.2); Monocytes Percent Auto 7.2 % (2-11); Neutrophils Absolute Auto 2.5 x10*3/uL (2.0-8.3); Neutrophils Percent Auto 54.2 % (45-73); Platelet Count 275 X10*3/uL (160-400); Red Blood Count 4.35 X10*6/uL (4.20-5.50); Red Cell Distribution Width 13.7 % (11.0-16.0); White Blood Count 4.7 X10*3/uL (4.8-10.8)
[2024-10-27 13:45] LABS: Estimated Average Glucose 114 mg/dL; Hemoglobin A1c % 5.6 % (<6.0)
[2024-10-27 14:03] LABS: Alanine Aminotransferase 22 U/L (0-31); Albumin Level 3.9 g/dL (3.5-5.0); Alkaline Phosphatase 44 U/L (39-117); Anion Gap 11 (12-20); Aspartate Amino Transferase 20 U/L (5-31); Bilirubin Total 0.5 mg/dL (0.0-1.0); Blood Urea Nitrogen 8 mg/dL (9-16); Calcium 9.1 mg/dL (8.4-10.2); Carbon Dioxide 27 mmol/L (22-29); Chloride 108 mmol/L (96-108); Cholesterol 183 mg/dL (<200); Estimated Glomerular Filt Rate > 60; Glucose Random 97 mg/dL (60-115); HDL Cholesterol 53 mg/dL (>40); LDL Cholesterol Calculated 117 mg/dL (<100); Sodium 142 mmol/L (135-145); TSH reflex Free T4 1.55 uIU/mL (0.32-4.0); Total Protein 6.5 g/dL (6.5-8.0); Triglycerides 67 mg/dL (<150); Vitamin D 25-OH Total 25.8 ng/mL (>30)
[2024-10-29 23:23] LABS: TS Negative Control Passed; TS Panel A 0; TS Panel B 0; TS Positive Control Passed; TSpotTB Negative (Negative)
== END 2024-10-27 10:36 | disposition home or self-care (01) ==
LOC: HO.HHCL 10:35
PROVIDERS: PCP Registered Nurse
DX: Z00.00 Encounter for general adult medical examination without abnormal findings (principal); Z11.1 Encounter for screening for respiratory tuberculosis; Z13.1 Encounter for screening for diabetes mellitus
CPT/HCPCS: 36415; 80053; 80061; 82306; 83036; 84443; 85025; 86481

== ENCOUNTER 2025-04-29 14:48 | Outpatient (REF) | payer MEDICAID, SELFPAY ==
--- NOTE | ~2025-04-29 | US_ITS ---
CLINICAL HISTORY: AUB US pelvis transabdominal and transvaginal Comparison: None provided Findings: Transabdominal scanning performed for overall anatomy. Transvaginal scanning performed for additional detail. Anteverted uterus is 9.9 cm length. Normal myometrium. Endometrium 12 mm thickness. No lesions. Right ovary 5.2 x 3.3 x 3.8 cm. Left ovary 2.8 x 1.1 x 1.4 cm. Normal color Doppler of both ovaries. There is almost certainly benign ovarian circumscribed avascular simple cyst measuring 4.0 x 3.4 x 3.2 cm. No free fluid. IMPRESSION: 1. Almost certainly benign right ovarian cyst. Consider a 6-12 month follow-up ultrasound to reassess due to size. This document has been electronically signed by: Jose Loja MD on 04/30/2025 11:36:06
--- OUTSIDE RECORDS SUMMARY | 2025-04-29 14:50 | XMS_ITS | Encounter Summary ---
Author Organization [employer] Address [address] [facility] [address] [place] [address] Care Team Providers Care Skinner Pelts Name Role Phone Jacki Gregorio Primary Care Provider [phone] Encounter Details Date Type Department Care Team (Late st Contact Info) Description 02/05/2023 Abstract [facility] [address] [place] [address] Jacki Gregorio FNP [address] [place], [place] [phone] Social History Tobacco Use Types Packs/Day Years Used Date Smoking Tobacco: Never Passive Smoke Exposure: Never Smokeless Tobacco: Never Alcohol Use Standard Drinks/Week Comments Not Currently 0 (1 standard drink = 0.6 oz pur e alcohol) socially Depression Answer Date Recorded Patient Health Questionnaire-9 Score 0 06/28/2022 Depression Answer Date Recorded Patient Health Questionnaire-2 Score 0 06/28/2022 Comments Unknown Sex and Gender Information Value Date Recorded Sex Assigned at Female 03/04/2022 10:18 AM EDT Legal Sex Female 10:18 AM EDT Gender Identity Female 03/04/2022 10:18 AM EDT Sexual Orientation Straight 03/04/2022 10 :18 AM EDT documented as of this encounter Plan of Treatment Not on file documented as of this encounter Procedures Procedure Name Priority Date/Time Associated Diagnosis Comments PAP/HPV Routine 03/07/2020 documented in this encounter Results * Pap Smear (03/07/2020) Pap Negative for intraephithelial lesion or malignancy Negative for intraephithelial lesion or malignancy, Other HPV Undetected us Historical Provider MD HEALTH MAINTENANCE Final Result documented in this encounter Visit Diagnoses Not on filedocumented in this encounter Additional Health Concerns Assessment Noted Time PHQ-9 Depression Total Score: 0 06/28/19 9:46 AM EST documented as of this encounter Care Teams Skinner Pelts Relationship Specialty Start Date End Date Jacki Gregorio FNP [address] [place] [id number] PCP - General Family Medicine 05/22/22 documented as of this encounter
--- OUTSIDE RECORDS SUMMARY | 2025-04-29 14:50 | XMS_ITS | Clinical Summary ---
Author Organization [employer] Address [address] [facility] [address] [place] [address] Care Team Providers Care Bridge Gang Worker Name Role Phone Jacki Gregorio FARRAH Primary Care Provider [phone] Allergies No known active allergies Medications cholecalciferol (Vitamin D-3) 50 MCG (2000 UT) capsule Take 1 capsule (50 mcg) by mouth Once per day. 90 capsule 1 11/08/2024 Active Active Problems Problem Noted Date Diagnosed Date Irregular menses 10/27/2024 Assessment & Plan (03/20/2025 5:48 PM EST): - Currently 4-8 weeks between menses, although discussed how this may be due to recent discontinuation of COCPs. Should normalize within a few months if this is the case. - Plan: check pelvic/TVUS. She is currently up to date on cervical cancer screening, but will be due next year. Encouraged OK to schedule a few months early in Jun 2025 for pap smear. - Return precautions sooner PRN reviewed Effusion of knee 10/27/2024 Class 3 severe obesity due t o excess calories without serious comorbidity with body mass index (BMI) of 40.0 to 44.9 in adult 09/27/2023 Assessment & Plan (09/27/2023 9:22 AM EDT): Wt Readings from Last 5 Encounters: 09/26/23 222 lb 3.2 oz (101 kg) 03/26/23 227 lb 6 oz (103 kg) 11/21/22 231 lb 12.8 oz (105 kg) 09/02/22 234 lb 4 oz (106 kg) 06/28/22 214 lb (97.1 kg) - Individualized goal weight: 190-200 lbs - Encouraged to cont with routine physical activity and sleep hygiene - Given primary difficulty with controlling cravings for sweets, plan to start topiramate 25mg nightly. Reviewed med safety and SE. Carpal tunnel syndrome, bilateral 03/29/2023 Overview (09/27/2023): EMG 10/16/22 showed moderate carpal tunnel on the right hand, and early carpal tunnel syndrome on the left. DME request for bilat wrist splints: 03/29/23 Following with [facility] - Dr. Yanez Plan for R CTS surgery scheduled 10/02/23 Assessment & Plan (03/29/2023 6:23 PM EST): Encouraged to cont with symptomatic management. Referral to [facility] hand specialist for further eval Routine health maintenance 06/30/2022 Overview (03/20/2025): Last Physical 09/26/23 OPH: referral to [facility] 03/18/25 (appointment request) Routine Cancer Screening: Breast CA: Routine mammograms starting at 40 y/o per [facility] Cervical CA: Pap NILM HPV neg September 2020. Plan to repeat September 2025 Colon CA: routine screening 45-75 years old per [facility] Assessment & Plan (06/30/2022 1:37 PM EST): -Baseline labs ordered, including asymptomatic STI screening Prediabetes 09/03/2016 Overview (03/29/2023): Lab Results Component Value Date HGBA1C 5.8 (H) 06/28/2022 HGBA1C 5.5 08/24/2020 -Reviewed lifestyle interventions including goal daily physical activity and healthy dietary options Vitamin D deficiency 09/03/2016 Overview (03/20/2025): Last Vit D 34 in Jun 2022 Continues with daily Vit D supplement (2000 units daily) Resolved Problems Problem Noted Date Diagnosed Date Resolved Date UTI symptoms 11/21/2022 03/29/2023 Encounters Date Type Department Care Team Description 03/18/2025 2:30 PM EST Office Visit [facility] [address] [place] [address] Jacki Gregorio FNP Irregular menses (Primary Dx); Vitamin D deficiency; Routine health maintenance 03/18/2025 Travel 03/17/2025 Telephone [facility] [address] [place] [address] Jacki Gregorio FNP Chart prep 03/08/2025 Telephone [facility] [address] [place] [address] Jacki Gregorio FNP Referral from Last 3 Months Immunizations Immunization Administration Dates Next Due DTaP 06/17/1990, 9,04/16/1987,1986,1986 Hep A, Adult 11/09/2018,10/13/2012 Hep B, Adolescent or Pediatric 08/01/2000,1999,01/25/2000 Hib ([facility]) 07/27/1989 IPV 01/16/1989, 8,04/06/1987,1986 Influenza, IIV3, injectable 03/17/2014, 8 Influenza, Split (incl. christy fied surface antigen) 02/24/2012 MMR 06/17/1991,01/16/1989 Pfizer Covid-19 Vaccine 12+ 06/18/2021 TD (adult), 2 Lf tetanus tox oid, preservative free, adsorbed 08/24/2004 Tdap 09/26/2023,06/15/2013 Varicella 08/25/2007 Family History Medical History Relation Name Comments Prostate cancer Brother Prostate cancer Father Stroke Father diabetes mellitus Father Prostate cancer Maternal Grandfather cardiovascular disease Maternal Grandmother Cataracts Mother Heart disease Mother Hypertension Mother Diabetes Paternal Grandfather Asthma Sister Relation Name Status Comments Brother Father Maternal Grandfather Maternal Grandmother Mother Paternal Grandfather Sister Social History Tobacco Use Types Packs/Day Years Used Date Smoking Tobacco: Never Passive Smoke Exposure: Never Smokeless Tobacco: Never Tobacco Cessation:Counseling Given: Not Answered Alcohol Use Standard Drinks/Week Comments Not Currently [...] Access Q2 Not on file 10/19/2024 Comments No Intention Date Recorded No desire to become (finding) 0 10/27/2024 Sex and Gender Information Value Date Recorded Sex Assigned at Female 03/04/2022 10:18 AM EDT Legal Sex Female 10:18 AM EDT Gender Identity Female 03/04/2022 10:18 AM EDT Sexual Orientation Straight 03/04/2022 10 :18 AM EDT Last Filed Vital Signs Vital Sign Reading Time Taken Comments Blood Pressure 129/75 03/18/2025 2:38 PM EST Pulse 62 03/18/2025 2:38 PM EST Temperature 36.7 C (98 F) 03/18/2025 2:38 PM EST Respiratory Rate 16 03/18/2025 2:38 PM EST Oxygen Saturation 99% 10/27/2024 10:04 AM EDT Inhaled Oxygen Concentration - - Weight 97.1 kg (214 lb) 03/18/2025 2:38 PM EST Height 153 cm (5' 0.25 ) 03/18/2025 2:38 PM EST Body Mass Index 41.45 03/18/2025 2:38 PM EST Plan of Treatment Health Maintenance Due Date Last Done Comments HPV Vaccines (1 - 3-dose series) 2001 Cervical Cancer Screening 09/20/2025 HPV/Cotest 09/20/2025 09/20/2020, 07/2019, 03/07/2020 Pap Smear 09/20/2025 09/20/2020, 03/07/2020 SDOH Screening 10/19/2025 10/19/2024 Alcohol/Substance Use Screening 10/27/2025 10/27/2024 Depression Screening 10/27/2025 10/27/2024, 10/28/19 Diabetes: Hemoglobin A1C 10/27/2025 025, 10/27/2024, 09/30/2023, Additional history exists Disability Screening 10/27/2025 10/27/2024 Family Planning (PISQ) 10/27/2025 10/27/2024 Influenza Vaccine (#1) 2025 4, 02/24/2012, 02/26/2008 Postponed from 01/03/2025 (Patient Refused) COVID-19 Vaccine ( season) 2026 07/09/2021, 06/18/2021 Postponed from 01/03/2025 (Patient Refused) Tobacco Screening 03/18/2026 03/18/2025 Lipid Panel 10/27/2029 10/27/2024, 09/03, 06/28/2022, Additional history exists DTaP/Tdap/Td Vaccines (8 - Td or Tdap) 09/25/2033 09/26/2023, 06/15/2013, 08/24/2004, Additional history exists Zoster Vaccines (1 of 2) 2036 RSV Patients and Patients Aged 60 years or older (1 - 1-dose 75+ series) 2061 IPV Vaccines Completed 01/16/1989, 06/06, 04/06/1987, Additional history exists HIB Vaccines Completed 07/27/1989 Hepatitis B Vaccines Completed 08/01/2000, 02/28/2000, 01/25/2000 Hepatitis A Vaccines Aged Out 11/09/2018, 10/14/19 13 No longer eligible based on patient's age to complete this topic HIV Screening Completed 06/28/2022 Hepatitis C Screening Completed 06/28/2022 Meningococcal B Vaccine Aged Out No l onger eligible based on patient's age to complete this topic Meningococcal Vaccine Aged Out No amanda shane eligible based on patient's age to complete this topic Pneumococcal Vaccine: Pediatrics (0 to 5 Years) and At-Risk Patients (6 to 49) Years Aged Out No longer eligible based on patient's age to complete this topic RSV under 20 months Aged Out No longe r eligible based on patient's age to complete this topic Rotavirus Vaccines Aged Out No longer eligible based on patient's age to complete this topic Procedures Procedure Name Priority Date/Time Associated Diagnosis Comments LIPID PANEL, STANDARD Routine 10/27/2024 10:45 AM EDT Encounter for routine history and physical examination of adult POCT GLYCATED HEMOGLOBIN, TOTAL Routine 10/27/2024 10:07 AM EDT Encounter for routine history and physical examination of adult HEPATITIS C AB W/REFL TO HCV RNA, QN, PCR Routine 06/28/2022 11:23 AM EST Routine health maintenance HIV 1 RNA, QN PCR W/RFL HARRY (RTI,PI,INTEGRASE) Routine 06/28/2022 11:23 AM EST Routine health maintenance ZZZ HISTORICAL THINPREP PAP AND HPV MRNA E6/E7 REFLEX HPV 16,18/45 Routine 09/20/2020 10:59 AM EDT from Last 3 Months or Most Recently Relevant to Health Maintenance Results * (ABNORMAL) Lipid Panel, Standard (10/27/2024 10:45 AM EDT) Triglycerides 67 <150 mg/dL [facility] Comment:Desirable Triglyceri de: less than 150 mg/dLBorderline High Triglyceride 150-199 mg/dLHigh Triglyceride: 200-499 mg/dLVery High Triglyceride: greater than or equal to 5OO mg/dL Cholesterol 183 <200 mg/dL [facility] Comment:Desirable Cholestero l: less than 200 mg/dLBorderline High Cholesterol: 200-239 mg/dLHigh Cholesterol: greater than 239 mg/dL LDL Cholesterol Calculated 117(H) <100 mg/dL [facility] Comment:Desirable LDL: less than 100 mg/dLNear Optimal/Above Optimal LDL: 110- 129 mg/dLBorderline High LDL: 130-159 mg/dLHigh LDL: 160-189 mg/dLVery High LDL: greater than or equal to 190 mg/dL HDL Cholesterol 53 >40 mg/dL [facility] Comment:Desirable HDL: great er than 40 mg/dL Note: This HDL assay may give artificially low results in patients with liver disease. Blood Venous blood specimen / Unknown 10/27/2024 10:45 AM EDT 10/27/2024 1:20 PM EDT [facility] LAB BLOOD ORDERABLES Poonam l Result [facility] [address] [place] [address] [phone] * POCT HGB A1C (10/27/2024 10:07 AM EDT) [facility] Hemoglobin A1C 5.7 4.0 - 6.0 % QC Media Lot # [id number] Lot# Expiration Date Blood 10/27/2024 10:0 7 AM EDT [facility] POINT OF CARE TEST ENTER/ EDIT ORDERABLES Final Result * HIV-1 RNA, Quantitative, Real-Time PCR with Reflex to Genotype (RTI, PI, Integrase) (06/28/2022 11:23 AM EST) [facility] HIV 1 RNA, QN PCR NOT DETECTED copies/mL [facility], HIV 1 RNA, QN PCR NOT DETECTED Log copies/mL [facility], Comment: REFERENCE RANGE: NOT DETECTED copies/mL NOT DETECTED Log copies/mL This test was performed using Real-Time Polymerase Chain Reaction. Reportable range is 20 to 10,000,000 copies/mL (1.30-7.00 Log copies/mL). 06/28/2022 11:2 3 AM EST 06/28/2022 11:24 AM EST Narrative [facility] - 07/01/2022 11:31 PM EST FASTING:YES FASTING: YES Jacki Gregorio [facility] BLOOD ORDERABLES Final Res ult Performing Organization Address [facility] de Phone Number [employer] [address] [place] [address], [place] [address] [employer], [address] [place] [phone] * Hepatitis C Antibody with Reflex to HCV, RNA, Quantitative, Real-Time PCR (06/28/2022 11:23 AM EST) Hepatitis C Antibody NON-REACT EVERETT NON-REACT EVERETT [employer] Index 0.04 <1.00 [employer] Comment: HCV antibody was non-reactive. There is no laboratory evidence of HCV infection. In most cases, no further action is required. However, if recent HCV exposure is suspected, a test for HCV RNA (test code 66645) is suggested. For additional information please refer to http://education.TSCA/faq/MOW13l8 (This link is being provided for informational/ educational purposes only.) Blood Venous blood specimen / Unknown 06/28/2022 11:23 AM EST 06/28/2022 11:24 AM EST Narrative [facility] - 07/01/2022 11:31 PM EST FASTING:YES FASTING: YES Jacki Gregorio [facility] BLOOD ORDERABLES Final Res ult Performing Organization Address [facility] Co de Phone Number [facility] [address] [place] [address], [place] [address] [employer] [address] [place] [address], ([address]) [place] [address] * THINPREP PAP AND HPV mRNA E6/E7 REFLEX HPV 16,18/45 (09/20/2020 10:59 AM EDT) Clinical Information: None given [facility] COMMENT SEE COMMENT [facility] Comment: EXPLANATORY NOTE: The Pap is a screening test for cervical cancer. It is not a diagnostic test and is subject to false negative and false positive results. It is most reliable when a satisfactory sample, regularly obtained, is submitted with relevant clinical findings and history, and when the Pap result is evaluated along with historic and current clinical information. Draw String Knotter: SEE COMMENT [facility] Comment: RMM, CT(ASCP) CT screening location: [address] [address] HPV nRNA E6/E7 Not Detected Not Detected [employer] [facility] Comment: Methodology: Building Surveyor-Mediated Amplification This assay detects E6/E7 viral messenger RNA (mRNA) from 14 high-risk HPV types (16,18,31,33,35,39,45,51,52,56,58,59,66,68). The analytical performance characteristics of this assay have been determined by [employer]. The modifications have not been cleared or approved by the FDA. This assay has been validated pursuant to the CLIA regulations and is used for clinical purposes. For additional information, please refer to http://education.SquaredOut.Circle/faq/BKZ837a4 (This link if provided for information/ educational purposes only.) Interpretation/Re sult: Negative for intraepithelial lesion or malignancy. [facility] LMP: NONE [facility] Prev. BX: NONE [facility] Prev. PAP: NONE [facility] SOURCE: Cervix [facility] Statement Of Adequacy: SEE COMMENT [facility] Comment: Satisfactory for evaluation. Endocervical/transformation zone component present. Age and/or menstrual status not provided 09/20/2020 10:5 9 AM EDT Perri Benton NP HISTORICAL/NON ORDERABLE LABS F inal Result [facility] [address] [place] [address], from Last 3 Months or Most Recently Relevant to Health Maintenance Insurance [facility] C3 Care Teams Bridge Gang Worker Relationship Specialty Start Date End Date Jacki Gregorio FNP [address] [facility] [place] [address] PCP - General Family Medicine 05/22/22
== END 2025-04-29 14:49 | disposition home or self-care (01) ==
LOC: HO.US 14:48
PROVIDERS: PCP Registered Nurse; Visit Provider Registered Nurse
DX: N93.9 Abnormal uterine and vaginal bleeding, unspecified (principal); N92.6 Irregular menstruation, unspecified
CPT/HCPCS: 76830; 76856

== ENCOUNTER → 2025-04-29 14:49 | Outpatient (BNV) | payer MEDICAID, SELFPAY | PROVIDERS: PCP Registered Nurse; Visit Provider Specialist | DX: N83.291 Other ovarian cyst, right side (principal); N93.9 Abnormal uterine and vaginal bleeding, unspecified | CPT/HCPCS: 76830; 76856 ==